=== PATIENT | female | born 1980 ===

== ENCOUNTER 2017-03-15 10:55 | Emergency (ER) | payer MEDICAID ==
[2017-03-15 11:29] VITALS: BP 126/85
--- NOTE | 2017-03-15 11:39 | EDM.PDOC ---
ED HPI GENERAL MEDICAL PROBLEM - General Time Seen by Provider: 03/15/17 11:00 Source of Information: Reports: Patient History Limitations: Reports: No Limitations - History of Present Illness INITIAL COMMENTS - FREE TEXT/NARRATIVE: According ot patient she woke up today morning and went into kitchen to eat her breakfast. She started having sudden sharp pain in the midchest with radiation to the back. She started to feel tingling in both her arms and also went cold. She is not sure if it was anxiety. Chest hurts all over now. Hurts to move and deep breath. Any kind of movement of the chest hurts. No fever, but had some chills before. No nausea or vomiting. Pain absent when not moving. No cough, wheezing, chest tightness or shortness of breath. Vitals are stable in the emergency room. SPO2 100% on room air. Pt claims that last night she was moving some boxes around the house as they have just moved into new house, but had not pain then. Onset: Today Onset Date: 03/15/17 Onset Time: 07:30 Improves with: Reports: Rest Worsens with: Reports: Movement Associated Symptoms: Reports: Chest Pain. Denies: Confusion, Cough, Fever/ Chills, Nausea/Vomiting, Rash, Seizure, Shortness of Breath, Syncope, Weakness chest pain Pain Score (Numeric/FACES): 7 - Related Data Allergies Allergy/AdvReac Type Severity Reaction Status Date / Time hydrocodone Allergy Anxiety Verified 03/15/17 11:29 Home Meds: Home Meds NK [No Known Home Meds] 05/13/16 [History] Past Medical History Respiratory History: Reports: Asthma Gastrointestinal History: Reports: Chronic Constipation STORE HOST History: Reports: Musculoskeletal History: Reports: Other (See Below) Other Musculoskeletal History: Bilateral wrist Fx; R ankle Fx; Skull Fx Neurological History: Reports: Migraines Psychiatric History: Reports: ADHD Endocrine/Metabolic History: Reports: Other (See Below) Other Endocrine/Metabolic History: Told "borderline diabetic" - Infectious Disease History Infectious Disease History: Reports: Chicken Pox, Shingles - Past Surgical History GI Surgical History: Reports: None Social & Family History - Family History Family Medical History: Noncontributory - Tobacco Use Smoking Status *Q: Current Every Day Smoker Years of Tobacco use: 4 Packs/Tins Daily: 0.5 Used Tobacco, but Quit: No Second Hand Smoke Exposure: Yes - Recreational Drug Use Recreational Drug Use: No ED ROS GENERAL - Review of Systems Review Of Systems: See Below Constitutional: Reports: Chills. Denies: Fever, Weakness, Fatigue, Night Sweats , Diaphoresis HEENT: Denies: Rhinitis, Sinus Problem, Throat Pain, Throat Swelling Respiratory: Reports: Pleuritic Chest Pain, Cough. Denies: Shortness of Breath , Wheezing, Sputum Cardiovascular: Reports: Chest Pain. Denies: Lightheadedness GI/Abdominal: Denies: Abdominal Pain, Nausea, Vomiting : Denies: Dysuria, Flank Pain Musculoskeletal: Denies: Joint Pain, Joint Swelling Skin: Denies: Pruritis, Rash Neurological: Denies: Confusion, Dizziness, Headache, Numbness, Tingling Psychiatric: Reports: Anxiety. Denies: Agitation, Confusion, Depression ED EXAM, GENERAL - Physical Exam Exam: See Below Exam Limited By: No Limitations General Appearance: Alert, WD/WN, No Apparent Distress, Anxious Eye Exam: Bilateral Eye: EOMI, PERRL Ears: Normal External Exam, Normal Canal, Hearing Grossly Normal, Normal TMs Ear Exam: Bilateral Ear: Auricle Normal, Canal Normal, TM normal Nose: Normal Inspection, Normal Mucosa, No Blood Throat/Mouth: Normal Inspection, Normal Lips, Normal Teeth, Normal Gums, Normal Oropharynx, Normal Voice, No Airway Compromise Head: Atraumatic, Normocephalic Neck: Normal Inspection, Supple, Non-Tender, Full Range of Motion Respiratory/Chest: No Respiratory Distress, Lungs Clear, Normal Breath Sounds, No Accessory Muscle Use, Other (Pt has tenderness over the costochondral junction of the sternum both right and left side) Cardiovascular: Normal Peripheral Pulses, Regular Rate, Rhythm, No Edema, No Gallop, No JVD, No Murmur, No Rub GI/Abdominal: Normal Bowel Sounds, Soft, Non-Tender, No Organomegaly, No Distention, No Abnormal Bruit, No Mass Extremities: Normal Inspection, Normal Range of Motion, Non-Tender, Normal Capillary Refill, No Pedal Edema Neurological: Alert, Oriented, CN II-XII Intact, Normal Cognition, Normal Gait, Normal Reflexes, No Motor/Sensory Deficits Psychiatric: Normal Affect, Anxious Skin Exam: Warm, Intact EKG INTERPRETATION EKG Date: 03/15/17 Rhythm: NSR Rate (Beats/Min): 77 [place]: Normal P-Wave: Present QRS: Normal ST-T: Normal QT: Normal Course - Vital Signs Text/Narrative:: Pt has elicitable tenderness over the costochondral junctions of the sternum. Her chest xray is normal.EKG in NSR. Vitals stable. Her CBC and CMP are normal. Her troponin is negative. She does not have exertional chest pain or dyspnea. Pt reassured that she has acute costochondirits form lifting boxes and moving. She did received toradol 30mg IM in the emergency room, pain slightly improved.Advised to take it easy for next few day. intermittent heat to the chest wall. Motrin 600mg 3 times daily. Avoid lifitng boxes until pain resolves. Last Recorded V/S: Last Vital Signs Temp 99.5 F 03/15/17 11:01 Pulse 87 03/15/17 11:01 Resp 20 03/15/17 11:01 BP 126/85 03/15/17 11:01 Pulse Ox 100 03/15/17 11:01 - Orders/Labs/Meds Orders: Active Orders 24 hr Category Date Time Status EKG Documentation Completion [RC] ASDIRECTED Care 03/15/17 11:24 Active Chest 1V Frontal [CR] Stat Exams 03/15/17 11:05 Taken Labs: Laboratory Tests 03/15/17 03/15/17 Range/Units 11:10 11:10 WBC 5.8 D (4.0-11.0) K/uL RBC 4.71 (3.80-5.80) M/uL Hgb 14.4 (11.5-16.5) g/dL Hct 41.4 (37.0-47.0) % MCV 88 (76-96) fL MCH 30.6 (27.0-32.0) pg MCHC 34.8 (31.0-35.0) g/dL RDW 12.9 (11.0-16.0) % Plt Count 244 (150-500) K/uL MPV 9.4 (6.0-10.0) fL Neut % (Auto) 57.0 (45.0-70.0) % Lymph % (Auto) 31.7 (20.0-40.0) % Gregg % (Auto) 7.9 (3.0-10.0) % Eos % (Auto) 2.9 (1.0-5.0) % Baso % (Auto) 0.5 (0.0-0.5) % Neut # (Auto) 3.33 (2.00-7.50) K/uL Lymph # (Auto) 1.85 (1.50-4.00) K/uL Gregg # (Auto) 0.46 (0.20-0.80) K/uL Eos # (Auto) 0.17 (0.04-0.40) K/uL Baso # (Auto) 0.03 (0.02-0.10) K/uL Sodium 142 (136-145) mmol/L Potassium 3.9 (3.5-5.1) mmol/L Chloride 107 (98-107) mmol/L Carbon Dioxide 28.1 (21.0-32.0) mmol/L Anion Gap 10.8 (5.0-15.0) mmol/L BUN 11 (8-26) mg/dL Creatinine 0.82 (0.55-1.02) mg/dL Est Cr Clr Drug Dosing 71.31 mL/min Estimated GFR (MDRD) > 60 (>60) MLS/MIN BUN/Creatinine Ratio 13.4 (6-25) Glucose 92 (74-100) mg/dL Calcium 9.2 (8.5-10.1) mg/dL Total Bilirubin 0.6 (0.0-1.0) mg/dL AST 19 (15-37) U/L ALT 27 (12-78) U/L Alkaline Phosphatase 66 (46-116) U/L Troponin I < 0.017 (0.000-0.060) ng/mL Total Protein 7.5 (6.4-8.2) g/dL Albumin 4.2 (3.4-5.0) g/dL Globulin 3.3 (2.2-4.2) g/dL Albumin/Globulin Ratio 1.3 (0.8-2.0) Meds: Medications Discontinued Medications Generic Name Dose Route Start Last Admin Trade Name Freq PRN Reason Stop Dose Admin Sodium Chloride 1,000 mls @ 0 mls/hr 03/15/17 12:00 03/15/17 11:20 Normal Saline IV 03/19/17 11:46 30 mls/hr ASDIRECTED BOBBI Administration KVO Ketorolac Tromethamine 30 mg 03/15/17 11:54 03/15/17 11:55 Toradol IVPUSH 03/15/17 11:55 30 mg ONETIME ONE Administration Ketorolac Tromethamine Confirm 03/15/17 11:59 Toradol Administered 03/15/17 12:00 Dose 30 mg .ROUTE .STK-MED ONE Ketorolac Tromethamine 30 mg 03/15/17 12:00 Toradol IM 03/15/17 12:01 ONETIME ONE Departure - Departure Time of Disposition: 13:00 Disposition: Home, Self-Care 01 Condition: Good Clinical Impression: Costochondritis, acute - Discharge Information Instructions: Muscle Pain, Adult, Cryotherapy, Chest Wall Pain Referrals: PCP,Unknown [Primary Care Provider] - Forms: ED Department Discharge Additional Instructions: You can take motrin (ibuprofen) 600mg three times a day or Aleve 2 tabs only twice a day as needed for the pain per the orders on the bottle. Take it easy for the next couple day and throughout the day make sure you take a couple deep breaths. - Problem List & Annotations (1) Costochondritis, acute SNOMED Code(s): 18137500 Code(s): M94.0 - CHONDROCOSTAL JUNCTION SYNDROME [TIETZE] Status: Acute - Problem List Review Problem List Initiated/Reviewed/Updated: Yes - My Orders Last 24 Hours: My Active Orders 03/15/17 11:05 Chest 1V Frontal [CR] Stat 03/15/17 11:24 EKG Documentation Completion [RC] ASDIRECTED - Assessment/Plan Last 24 Hours: My Active Orders 03/15/17 11:05 Chest 1V Frontal [CR] Stat 03/15/17 11:24 EKG Documentation Completion [RC] ASDIRECTED Assessment:: Acute costochondritis Plan: Pt has elicitable tenderness over the costochondral junctions of the sternum. Her chest xray is normal.EKG in NSR. Vitals stable. Her CBC and CMP are normal. Her troponin is negative. She does not have exertional chest pain or dyspnea. Pt reassured that she has acute costochondritis form lifting boxes and moving. She did received toradol 30mg IM in the emergency room, pain slightly improved.Advised to take it easy for next few day. intermittent heat to the chest wall. Motrin 600mg 3 times daily. Avoid lifting boxes until pain resolves.
[2017-03-15] MEDS ORDERED: Ketorolac 30 MG/ML SDV IVPUSH ONE (11:54)
[2017-03-15] MEDS ORDERED: Ketorolac 30 MG/ML SDV ONE (11:59)
[2017-03-15] MEDS ORDERED: Ketorolac 30 MG/ML SDV IM ONE (12:00)
[2017-03-15] MEDS ORDERED: Sodium Chloride 0.9% 1,000 ML IV SCH (12:00)
--- NOTE | 2017-03-16 18:59 | CR ---
DATE OF SERVICE: 03/15/2017 CLINICAL DATA: Chest pain. AP PORTABLE CHEST No priors. The heart size is normal. The lungs are clear. The exam is otherwise negative. IMPRESSION: Normal exam. [id number] MTDD
== END 2017-03-15 12:10 | disposition home or self-care (01) ==
LOC: LB.ED 10:55
DX: M94.0 Chondrocostal junction syndrome [Tietze] (principal); J45.909 Unspecified asthma, uncomplicated; G43.909 Migraine, unspecified, not intractable, without status migrainosus; F17.210 Nicotine dependence, cigarettes, uncomplicated; Z88.6 Allergy status to analgesic agent
CPT/HCPCS: 36415; 71010; 80053; 84484; 85025; 93005; 96374; 99285; J1885; J7040